=== PATIENT | female | born 1960 | race Caucasian/White ===

== ENCOUNTER → 2018-03-19 | Day surgery (SDC) | payer OTHER, MEDICAID ==
[~2018-03-19] MED LIST: ASPIR 8181 MG PO; BAYER CHEWABLE81 MG PO; CELEXA20 MG; CELEXA20 MG PO; COSOPT EYE DROPS5 ML OPHTHALMIC; HYDROCODONE-AP1 EAC6 PO; MAXIDEX5 ML OPHTHALMIC; MOBIC15 MG PO; MOBIC7.5 M1 PO; NORCO 5-325 TA1 EACH PO; OXYCODONE HCL 55 MG PO; PRED FORTE 1% EY5 M1 OPHTHALMIC; TRAZODONE 150150 M1 PO; TRAZODONE HCL100 MG PO; VOLTAREN GEL 1100 G2 PO; XARELTO10 MG PO
[2018-03-19 09:40] LABS: HEMATOCRIT 44.6 % (37.0-47.0); HEMOGLOBIN 14.8 gm/dL (12.0-15.0); MCH 30.3 pg (26.0-34.0); MCHC 33.3 g/dL (28.0-37.0); MPV 10.3 fl. (7.2-11.1); RBC 4.9 mil/uL (4.20-5.00); RDW-CV 14.8 % (10.5-14.5); WBC 6.3 thou/uL (4.0-11.0)
[2018-03-19 09:45] LABS: CALCIUM 9.1 mg/dL (8.5-10.1); CREATININE 0.7 mg/dL (0.6-1.3); POTASSIUM 4.3 mmol/L (3.5-5.1)
--- NOTE | 2018-03-19 14:06 | OP ---
[address] [address] OPERATIVE REPORT Name: GABY SARGENT Room: [facility]#: [id number] Admission: 03/19/18 Attend Phys: Jose L Ng DO Discharge: Date of : 56 Report #: [id number] THIS REPORT FOR: //name// CC: [facility] L [facility] DI[facility]ATED BY: Michel Vega DATE OF SERVICE: 03/19/2018 PREOPERATIVE DIAGNOSES: Left shoulder biceps tendinitis and partial rotator cuff tear. POSTOPERATIVE DIAGNOSES: Left shoulder biceps tendon tear, intrasubstance with tendinitis, articular-sided partial rotator cuff tear and impingement syndrome. SURGERY: Left shoulder arthroscopic biceps tenotomy, debridement of undersurface of partial thickness rotator cuff tear and subacromial decompression with acromioplasty. SURGEON: Jose L Ng DO BOBBIN DISKER: Michel Vega DO ANESTHESIA: General with interscalene block. ESTIMATED BLOOD LOSS: Minimal. MEDICATIONS: Preop antibiotics 2 grams Ancef IV prior to incision. COMPLICATIONS: None. SPECIMEN: None. CONDITION: The patient was stable to PACU. FINDINGS: Surgeon's inspection of the joint arthroscopically demonstrated intrasubstance tear of the biceps tendon. The articular cartilage was in good condition. There was fraying of the rotator cuff on the articular surface, but this was not full thickness. View from the subacromial space confirmed a partial thickness rotator cuff tear and there was also a large acromial spur protruding inferiorly as well as thickening of the subacromial bursa. INDICATIONS: The patient is a pleasant 58-year-old female with a longstanding left shoulder pain. She has tried and failed nonoperative care and MRI confirmed biceps tendinosis with a partial thickness rotator cuff tear. After [address] [address] OPERATIVE REPORT Name: GABY SARGENT Room: [facility]#: [id number] Admission: 03/19/18 Attend Phys: Jose L Ng DO Discharge: Date of : 56 Report #: [id number] discussing the risks, benefits, complications, alternatives and indications to left shoulder arthroscopy including but not limited to bleeding, infection, neurovascular injury, continued pain, need for further surgery, DVT, PE, inherent risks of anesthesia, she is willing to proceed. Consent is available in the chart. DESCRIPTION OF PROCEDURE: The patient was seen in preoperative holding area and operative site initialed by surgeon. She was brought back to operative suite, placed in a well-padded table in supine position. General anesthesia was induced. The patient was then positioned in the upright beach chair position on the T-max table. All extremities and head and neck were well padded and supported. The left shoulder was sterilely prepped and draped in normal fashion. Timeout was performed in usual fashion, all attendants were in agreement. A 15 blade scalpel was used to make a posterior portal incisions and a blunt trocar used to access the glenohumeral joint. Camera was introduced and the shoulder insufflated with normal saline. Diagnostic arthroscopy was performed with the above-mentioned findings. A spinal needle was used for localization, anterior portal site and a 15 blade scalpel was used to make anterior skin incision. Blunt trocar was used to access the joint anteriorly. Arthroscopic scissors was then advanced and a biceps tenotomy was performed. A shaver was also utilized along with radiofrequency ablator to the anterior portal to perform debridement of the undersurface rotator cuff tear. Instruments were removed and the trocar was used to access the subacromial space posteriorly. Camera was introduced and the space was insufflated with normal saline. A spinal needle was then used for a lateral portal site incision and a 15 blade scalpel used to incise the skin. Blunt trocar was used to access the space. Radiofrequency ablator and shaver were used to perform a subacromial decompression removing bursal tissue. The rotator cuff was inspected and found to be intact from the subacromial space. A stitch had been placed through a spinal needle prior to entering the subacromial space for localization of suspected tear. This was identified and there was no full thickness tear here. A bur was then used on high speed to perform an acromioplasty of the acromial spur. The space was drained of fluid and the instruments were removed. Incision was closed with 3-0 nylon in simple interrupted fashion. Dressings were placed in the form of Xeroform gauze, 4 x 4, ABDs and tape. The patient was awoken and brought to PACU in stable fashion. She tolerated the procedure well. Dr. Ng was present throughout the critical aspects of surgery. Sponge and needle counts were correct x 2. <ELECTRONICALLY SIGNED> By: Jose L Ng DO 03/19/18 1406 1213 1250Jose L Ng DO /spike
--- NOTE | 2018-03-20 17:21 | EKG ---
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: : 1960 Requested By: Jose L Ng Order Number: [id number] Reading MD: Dat Rosado Measurements Intervals [place] Rate: 87 P: 39 NV: 135 QRS: 32 QRSD: 89 T: -82 QT: 380 QTc: 457 Interpretive Statements Sinus rhythm Borderline repolarization abnormality Compared to ECG 04/29/2016 10:23:00 No significant changes Electronically Signed On 03-20-2018 17:21:33 CDT by aDt Rosado [email or web address] <ELECTRONICALLY SIGNED> By: Dat Rosado MD, [facility] 03/20/18 1721 0921 0 Dat Rosado MD, [facility] /EPI
== END | disposition home or self-care (01) ==
LOC: M.SUR 08:03
PROVIDERS: Orthopaedic Surgery
DX: M75.102 Unspecified rotator cuff tear or rupture of left shoulder, not specified as traumatic (principal); S46.212A Strain of muscle, fascia and tendon of other parts of biceps, left arm, initial encounter; M75.42 Impingement syndrome of left shoulder; X58.XXXA Exposure to other specified factors, initial encounter; Z79.82 Long term (current) use of aspirin; Z79.891 Long term (current) use of opiate analgesic; Y93.89 Activity, other specified; Y92.89 Other specified places as the place of occurrence of the external cause; Y99.8 Other external cause status

== ENCOUNTER → 2018-12-09 | Outpatient (CLI) | payer OTHER, MEDICAID | LOC: M.WC 12-07 09:00 | DX: S41.102A Unspecified open wound of left upper arm, initial encounter (principal); S31.109A Unspecified open wound of abdominal wall, unspecified quadrant without penetration into peritoneal cavity, initial encounter; S81.801A Unspecified open wound, right lower leg, initial encounter; S81.831A Puncture wound without foreign body, right lower leg, initial encounter; E66.9 Obesity, unspecified; M19.90 Unspecified osteoarthritis, unspecified site; F41.9 Anxiety disorder, unspecified; F32.9 Major depressive disorder, single episode, unspecified; Z68.41 Body mass index [BMI] 40.0-44.9, adult; Z96.659 Presence of unspecified artificial knee joint; Z90.710 Acquired absence of both cervix and uterus; Z98.49 Cataract extraction status, unspecified eye; Z79.82 Long term (current) use of aspirin; X58.XXXA Exposure to other specified factors, initial encounter; Y93.89 Activity, other specified; Y92.89 Other specified places as the place of occurrence of the external cause; Y99.8 Other external cause status ==

== ENCOUNTER 2019-12-03 17:38 | Emergency (ER) | payer OTHER, MEDICAID ==
[~2019-12-03] VITALS: Ht 160 cm; Wt 141.4 kg
[2019-12-03] MEDS ORDERED: RAYOS5 MG PO (17:51)
[2019-12-03] MEDS ORDERED: DORYX MPC120 MG PO (17:51)
[2019-12-03] MEDS ORDERED: AMOXICILLIN500 M1 PO (17:53)
[2019-12-03 18:17] LABS: ABSOLUTE BASOPHILS 0.1 thou/uL (0.0-0.2); ABSOLUTE LYMPHOCYTES 2.1 thou/uL (0.8-5.3); ABSOLUTE MONOCYTES 0.9 thou/uL (0.0-1.2); ABSOLUTE NEUTROPHILS 6.7 thou/uL (1.6-8.1); BASOPHILS 0.7 %; EOSINOPHILS 0.2 %; HEMATOCRIT 44.6 % (37.0-47.0); HEMOGLOBIN 15.2 gm/dL (12.0-15.0); LYMPHOCYTES 21.5 %; MCH 30.8 pg (26.0-34.0); MCV 90.6 fL (80.0-100.0); MONOCYTES 9.5 %; MPV 10.4 fl. (7.2-11.1); NUCLEATED RBCS 0 /100WBC; PLATELET COUNT* 160 thou/uL (150-400); POLYS 68.1 %; RBC 4.92 mil/uL (4.20-5.00); RDW-CV 15.3 % (10.5-14.5); WBC 9.9 thou/uL (4.0-11.0)
[2019-12-03 18:28] LABS: CREATININE 0.7 mg/dL (0.6-1.3); POTASSIUM 4.4 mmol/L (3.5-5.1)
[2019-12-03 18:39] LABS: TOTAL BILIRUBIN 0.3 mg/dL (<0.1-1.0); TOTAL PROTEIN 7.8 g/dL (6.4-8.2)
[2019-12-03] MEDS ORDERED: LEVAQUIN 500 M500 MG PO (18:41)
[2019-12-03 18:49] VITALS: BP 208/104
--- NOTE | 2019-12-04 10:00 | EKG ---
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: [place] : 1960 Requested By: Robin Sullivan Order Number: [id number] MD: Joe Ross Measurements Intervals [place] Rate: 99 P: 51 MN: 179 QRS: 29 QRSD: 97 T: 229 QT: 368 QTc: 473 Interpretive Statements Sinus rhythm Consider right atrial enlargement Borderline repolarization abnormality Minimal ST elevation, anterior leads Compared to ECG 03/19/2018 09:21:58 no change Electronically Signed On 12-04-2019 9:59:31 SENIOR RELIABILITY ENGINEER by Joe Ross [email or web address] <ELECTRONICALLY SIGNED> By: Joe Ross MD, [facility] 12/04/19 0959 1744 174 Joe Ross MD, FAC /EPI
== END 2019-12-03 18:51 | disposition home or self-care (01) ==
LOC: M.ERS 17:38
PROVIDERS: Family Medicine
DX: J18.9 Pneumonia, unspecified organism (principal); J45.901 Unspecified asthma with (acute) exacerbation; M19.90 Unspecified osteoarthritis, unspecified site; E66.9 Obesity, unspecified; Z90.710 Acquired absence of both cervix and uterus; Z96.651 Presence of right artificial knee joint; Z68.43 Body mass index [BMI] 50.0-59.9, adult

== ENCOUNTER 2020-03-30 16:25 | Inpatient (IN) | payer OTHER, MEDICAID ==
[~2020-03-30] VITALS: Ht 160 cm; Wt 135.7 kg
[~2020-03-30 16:25] MED LIST changes: +AMOXICILLIN500 M1 PO; +DORYX MPC120 MG PO; +LEVAQUIN 500 M500 MG PO; +RAYOS5 MG PO
[2020-03-30] MEDS ORDERED: METFORMIN HCL500 M3 PO (16:35)
[2020-03-30 16:55] LABS: ABSOLUTE BASOPHILS 0.1 thou/uL (0.0-0.2); ABSOLUTE EOSINOPHILS 0.1 thou/uL (0.0-0.7); ABSOLUTE LYMPHOCYTES 2.3 thou/uL (0.8-5.3); ABSOLUTE NEUTROPHILS 5.5 thou/uL (1.6-8.1); BASOPHILS 1.1 %; EOSINOPHILS 0.8 %; HEMOGLOBIN 14.6 gm/dL (12.0-15.0); LYMPHOCYTES 25.4 %; MCH 30.7 pg (26.0-34.0); MCV 90.4 fL (80.0-100.0); MPV 10.3 fl. (7.2-11.1); NUCLEATED RBCS 0 /100WBC; PLATELET COUNT* 153 thou/uL (150-400); POLYS 61.7 %; RBC 4.76 mil/uL (4.20-5.00); RDW-CV 14.4 % (10.5-14.5); WBC 8.9 thou/uL (4.0-11.0)
[2020-03-30 17:07] LABS: APTT 27.9 Seconds (25.0-31.3); INR 1.1; PROTIME 11.2 Seconds (9.20-11.50)
[2020-03-30 17:11] LABS: CALCIUM 8.8 mg/dL (8.5-10.1); CREATININE 0.7 mg/dL (0.6-1.3); POTASSIUM 4.6 mmol/L (3.5-5.1)
[2020-03-30 17:28] LABS: CK-MB MASS 1.3 ng/mL (<0.5-3.6); MAGNESIUM 1.9 mg/dL (1.8-2.4); TOTAL BILIRUBIN 0.3 mg/dL (<0.1-1.0); TOTAL PROTEIN 7.6 g/dL (6.4-8.2)
[2020-03-30 17:55] LABS: URINE BILIRUBIN NEGATIVE (Negative); URINE BLOOD NEGATIVE (Negative); URINE CLARITY CLEAR; URINE COLOR YELLOW; URINE GLUCOSE-RANDOM NEGATIVE (Negative); URINE KETONES NEGATIVE (Negative); URINE LEUKOCYTES-REFLEX NEGATIVE (Negative); URINE NITRITE-REFLEX NEGATIVE (Negative); URINE PROTEIN NEGATIVE (Negative); URINE SPECIFIC GRAVITY 1.025 (1.005-1.030); URINE UROBILINOGEN 0.2 E.U./dl (0.2-1.0)
[2020-03-30 20:00] VITALS: BP 155/54
[2020-03-30 20:08] VITALS: BP 119/53
[2020-03-31] VITALS: BP 126/63
[2020-03-31 04:55] VITALS: BP 137/60
--- NOTE | 2020-03-31 07:19 | NUR ---
ASSUMED CARE OF PT 03/30/20 AT APPROX 2000, PT A&OX4, ON 2L NC, VSS. SINUS RHYTHUM ON MONITOR. NO COMPLAINTS THIS SHIFT. ASSESSMENTS AND HOURLY ROUNDINGS COMPLETE.
[2020-03-31 08:00] VITALS: BP 167/87
[2020-03-31 10:15] VITALS: BP 167/87
[2020-03-31] MEDS ORDERED: CEFDINIR300 MG PO ×2 (10:54→10:55)
[2020-03-31 11:28] VITALS: BP 167/87
--- NOTE | 2020-03-31 13:02 | NUR ---
DISCHARGED HOME WITH FRIEND TONEY. RESPIRATIONS EVEN AND UNLABORED ON ROOM AIR. DENIES PAIN. DISCHARGE INSTRUCTIONS GIVEN AND EXPLAINED. VERBALIZED UNDERSTANDING. INSTRUCTED TO FOLLOW UP NEEDED.
--- NOTE | 2020-04-01 14:41 | EKG ---
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 : 1960 Requested By: Jose Hua Order Number: [id number] MD: Dat Rosado Measurements Intervals [place] Rate: 100 P: 35 HI: 129 QRS: 31 QRSD: 88 T: 258 QT: 357 QTc: 461 Interpretive Statements Sinus tachycardia Borderline repolarization abnormality Compared to ECG 12/03/2019 17:44:59 Sinus rhythm no longer present ST (T wave) deviation no longer present Electronically Signed On 04-01-2020 14:40:04 CDT by Dat Rosado [email or web address] <ELECTRONICALLY SIGNED> By: Dat Rosado MD, FACC 04/01/20 1440 1631 1631 Dat Rosado MD, FACC /EPI
--- NOTE | 2020-04-02 11:02 | NUR ---
INFECTION PREVENTION: PATIENT NOTIFIED OF NEGATIVE COVID 19 TEST RESULTS. NO QUESTIONS OR CONCERNS.
== END 2020-03-31 12:45 | disposition home or self-care (01) | DRG 178 ==
LOC: M.ERS 16:25 → M.TBA-ER 17:53 → M.ORTHSURG 20:00
PROVIDERS: Emergency Medicine; ADMIT Internal Medicine
DX: J15.6 Pneumonia due to other Gram-negative bacteria (principal); Z68.43 Body mass index [BMI] 50.0-59.9, adult; F32.9 Major depressive disorder, single episode, unspecified; M19.90 Unspecified osteoarthritis, unspecified site; Z96.651 Presence of right artificial knee joint; E66.01 Morbid (severe) obesity due to excess calories; Z20.828 Contact with and (suspected) exposure to other viral communicable diseases; Z90.710 Acquired absence of both cervix and uterus; Z79.84 Long term (current) use of oral hypoglycemic drugs; Z79.82 Long term (current) use of aspirin; Z79.899 Other long term (current) drug therapy

== ENCOUNTER → 2020-05-08 | Outpatient (CLI) | payer OTHER, MEDICAID ==
[~2020-05-08] MED LIST changes: +ALBUTEROL2.5 MG/31 INH; +AMMONIUM LACTA385 GM TOP; +CEFDINIR300 MG PO; +CHILDREN'S ZYRT10 M1 PO; +COSOPT PF EYE1 EACH EA. EYE; +Cranberry PO; +FLONASE 0.05%50 MCG NASAL; +MELOXICAM7.5 MG PO; +METFORMIN HCL500 M3 PO; +MULTIPLE VITAM1 EAC2 PO; +PROVENTIL HFA6.7 G1 INH; +SINGULAIR 10 MG10 M1 PO; +SYMBICORT160 MCG/4. INH; +TIZANIDINE HCL2 M1 PO; +ZESTRIL5 MG PO; +vitamin d PO
== END ==
LOC: M.MRI 08:47
PROVIDERS: ATTEND Family Medicine
DX: M47.26 Other spondylosis with radiculopathy, lumbar region (principal); M41.87 Other forms of scoliosis, lumbosacral region

== ENCOUNTER → 2020-05-24 | Outpatient (CLI) | payer OTHER, MEDICAID ==
--- NOTE | 2020-06-07 15:59 | PAINCON ---
[address] [address] PAIN MANAGEMENT CONSULTATION Name: GABY SARGENT Room: [facility] MarcianoZuleyma#: [id number] Admission: 05/24/20 Attend Phys: Lilia Mabry MD Discharge: Date of : 56 Report #: [id number] THIS REPORT FOR: //name// cc: Phoebe Mena Maggie M. DO THIS REPORT FOR: //name// CC: Phoebe Paul DATE OF SERVICE: 05/24/2020 CHIEF COMPLAINT: Lumbar pain and arthritis. HISTORY: The patient states that her pain is quite significant. It started in 02/2020. She states that the complexity of her pain keeps her from walking at times. Notes the pain is worse when she is sitting in a recliner. She feels that sometimes it is better when she is moving around. She describes it as intermittent, brief shooting, aching, and sharp. She rates it as a 4 today. It can rise to the level of 8. Radiates down the posterior portion of her back and into the posterior portion of her thighs. She uses a cane and walker for ambulation. She cannot walk long distances without support. Pain continues to radiate down into her legs. Sometimes feels her legs are weak. She has used sbrx-fns-vpsblyp medications like Tylenol and ibuprofen. She has used Flexeril to help with muscle spasms. She feels that sometimes the pain is worse in the morning. ALLERGIES: No known drug allergies. CURRENT MEDICATIONS: Albuterol 2 puffs, aspirin 81 mg, Symbicort 160/45 two puffs, Zyrtec 10 mg, Celexa 40 mg, cranberry, Cosopt b.i.d. in the right eye ophthalmic, Flonase nasal spray, lisinopril 5 mg, 10 mg total daily, Mobic 7.5 mg, metformin 500 mg, Singulair 10 mg, trazodone 100 mg at bedtime, vitamin D 2000 units, Thera-M daily. 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 PAST SURGICAL HISTORY: Cataract extraction, bilateral corneal transplant on 06/01/2016,eye surgery right foot surgery, left in 1991, bone spur left foot in 1993, foot surgery left in 01/2017, hand surgery in 01/2013, hand surgery in 02/2006, hysterectomy 2000, joint replacement, total knee right in 04/2016. [place] [address] PAIN MANAGEMENT CONSULTATION Name: GABY SARGENT Room: [facility]#: [id number] Admission: 05/24/20 Attend Phys: Lilia Mabry MD Discharge: Date of : 56 Report #: [id number] PAIN CLINIC ASSESSMENT/PQRS: 1. The patient has osteoarthritic condition, hands. 2. Arthritis: The patient is not being treated for rheumatoid arthritis. 3. Height 5 feet 3 inches, weight 296 pounds, BMI 52.4. 4. Vital Signs: Blood pressure 144/78, heart rate 87, respiratory rate 16, room air saturation 92%, temperature 98.5. 5. Pain intensity 4/10. 6. Fall history: The patient has not fallen in the last 3 months. 7. Blood thinner. The patient is not on a blood thinning medication. 8. Hypertension. The patient is being treated for hypertension. 9. Opioids greater than 6 weeks. The patient is not on a regular opioid medication, receives her medication from her primary. 10. Risk assessment tool, low for opioid use. 11. Functional assessment tool, reviewed. 12. Recreational drug use: The patient denies. 13. Tobacco. Denies use of tobacco. 14. Alcohol: The patient denies use of alcohol. SOCIAL HISTORY: The patient is retired. PHYSICAL EXAMINATION: GENERAL: The patient is a well-developed, well-nourished white female. Appears her stated age. She is alert and oriented x 3. Her affect is appropriate. Speech is fluent. The patient is wearing a mask. NECK: Without adenopathy or JVD. HEART: Tones distant. LUNGS: Generally unremarkable. ABDOMEN: Protuberant. EXTREMITIES: Upper extremity muscle strength judged to be 5-/5. Some decreased range of motion shoulder. The patient without significant scoliosis or lordosis. IMPRESSION: 1. The patient has pain and discomfort in lower portion of her back radiating to the L5-S1 dermatomal distribution involsving the posterior portion of her legs. 2. Arthritis. 3. Asthma. 4. Cataracts. 5. Depression. 6. Diabetes mellitus. 7. Glaucoma in both eyes in 07/23/2018. 8. Obesity. 9. Urinary tract infections. 10. [place] [address] PAIN MANAGEMENT CONSULTATION Name: GABY SARGENT Room: [facility] James#: [id number] Admission: 05/24/20 Attend Phys: Lilia Mabry MD Discharge: Date of : 56 Report #: [id number] LABORATORY DATA: MRI of the lumbar spine dated 05/08/2020: 1. L3-L4, there is generalized disk bulge with severe hypertrophic facet degenerative changes and ligamentum flavum hypertrophy. No central spinal stenosis or significant neural foraminal narrowing. 2. L4-L5, there is a generalized disk bulge with severe hypertrophic posterior facet degenerative changes and ligamentum flavum hypertrophy. There is a broad-based central disk protrusion. This narrows AP diameter of the thecal sac to 7 mm consistent with [id number] central spinal stenosis. There is severe bilateral neural foraminal narrowing. 3. At L5-S1, there is a broad-based central left paracentral disk protrusion. This abuts and deforms the anterior thecal sac. AP diameter of the thecal sac remains 10 mm. There is a mild left neural foraminal narrowing. RECOMMENDATIONS: We discussed treatment options with the patient. She does have narrowing of the lumbar area. She has pain and discomfort in the L5-S1 dermatomal distribution. We have discussed the risks and benefits of an epidural steroid injection. Given that the patient is a diabetic, injections with steroids can cause elevation of blood sugar. She is aware of this. She will return to the Pain Clinic, at which time she will undergo an epidural steroid injection. Risks and benefits will be reviewed again. We would like to thank you for letting us participate in her care. We hope she continues to improve. <ELECTRONICALLY SIGNED> By: Lilia Mabry MD 06/07/20 1559 1517 [id number]. MD DEBORAH Marinelli
== END ==
LOC: M.PC 10:30
PROVIDERS: ATTEND Anesthesiology Pain Medicine
DX: M54.5 Low back pain (principal); M19.90 Unspecified osteoarthritis, unspecified site; J45.909 Unspecified asthma, uncomplicated; F32.9 Major depressive disorder, single episode, unspecified; E11.9 Type 2 diabetes mellitus without complications; E66.9 Obesity, unspecified; N39.0 Urinary tract infection, site not specified; H26.9 Unspecified cataract; Z97.0 Presence of artificial eye

== ENCOUNTER → 2020-06-07 | Outpatient (CLI) | payer OTHER, MEDICAID ==
--- NOTE | 2020-06-20 08:36 | PAINCON ---
[address] [address] PAIN MANAGEMENT CONSULTATION Name: GABY SARGENT [id number] Admission: 06/07/20 Attend Phys: Lilia Mabry MD Discharge: Date of : 56 Report #: [id number] THIS REPORT FOR: //name// cc: Phoebe Mena Maggie M. DO ~ THIS REPORT FOR: //name// CC: Phoebe Mabry DATE OF SERVICE: 06/07/2020 CHIEF COMPLAINT: Low back pain and pain in the upper legs. HISTORY: The patient is a 60-year-old female who has been seen in the pain clinic because of lumbar pain. She has been experiencing pain, which started in 02/2020. Notes that the pain has been quite problematic. She has been resting and staying in a recliner. She has pain that radiates down the posterior portion of her legs into her thighs. She has been using a cane and walker for ambulation. She has difficulty walking distances. She requires support. Feels her legs are weak. She has returned today for treatment. She is having pain in the lower portion of her legs and has returned today for an epidural steroid injection. ALLERGIES: No known drug allergies. CURRENT MEDICATIONS: Albuterol 2 puffs, aspirin 81 mg, Symbicort 2 puffs, Zyrtec 10 mg, Celexa 40 mg, cranberry, Cosopt b.i.d. in the right eye ophthalmic, Flonase nasal spray, lisinopril 5 mg, total of 10 mg daily, Mobic 7.5 mg, metformin 500 mg, Singulair 10 mg, trazodone 100 mg at bedtime, vitamin D 2000 units. PAIN CLINIC ASSESSMENT/PQRS: 1. The patient has arthritic changes and problems in her hands. 2. Arthritis. The patient is not being treated for rheumatoid arthritis. 3. Height 5 feet 3 inches, weight 297 pounds, and BMI is 54. 4. Blood pressure 121/78, heart rate 93, respiratory rate 20, room air saturation is 96%, temperature 97.9. 5. Pain intensity 8/10. 6. Fall history: The patient has not fallen in the last 3 months. 7. Blood thinner. The patient is not on a blood thinning medication. 8. Hypertension. The patient is being treated for hypertension. 9. Opioids greater than 6 weeks. The patient is not on an opioid regimen. The patient receives medication from her primary. 10. Risk assessment tool, low for opioid use. 11. Functional assessment [place] [address] PAIN MANAGEMENT CONSULTATION Name: GABY SARGENT Room: [facility] KamleshKiana#: [id number] Admission: 06/07/20 Attend Phys: Lilia Mabry MD Discharge: Date of : 56 Report #: [id number] 12. Recreational drug use. The patient denies. 13. Tobacco: The patient denies. 14. Alcohol: The patient denies. PHYSICAL EXAMINATION: GENERAL: The patient is a well-developed, well-nourished white female. Appears her stated age. She is alert and oriented x 3. She is appropriate. Speech is fluent. The patient is wearing a mask. NECK: Without adenopathy or JVD. HEART: Regular rate. ABDOMEN: Protuberant. LUNGS: Unremarkable. EXTREMITIES: Upper extremity muscle strength 5-/5 for the major muscle groups in the upper extremity. The patient has decreased range of motion in her shoulders. The patient is without significant scoliosis or lordosis. The patient has pain and discomfort in the lower portion of her back, radiating down in the L5-S1 dermatomal distribution involving her legs. IMPRESSION: 1. Lumbar radiculopathy, L4-L5 dermatomal distribution. 2. Arthritis. 3. Asthma. 4. Cataracts. 5. Depression. 6. Diabetes mellitus. 7. Glaucoma in both eyes, 07/23/2018. 8. Obesity. 9. Urinary tract infections. 10. Visual impairment. RECOMMENDATIONS: We discussed treatment options with the patient. Risks and benefits of an epidural steroid injection were discussed. Possible complications of the procedure, which could include but are not limited to infection, worsening of pain, no improvement in pain, nerve damage were discussed. The patient is aware that COVID-19 is pandemic. She has been informed about the possible complications of COVID-19 and use of steroids, one may not be able to ____ immune response given an epidural injection with steroids. Given the patient's pain and discomfort, she elects to proceed. PROCEDURE NOTE: The patient was taken to the procedure area. She was then assisted in getting on the examination table. Her back was sterilely prepped with a Betadine solution at the L4-L5 area. A 0.25% bupivacaine was infiltrated. A 17-gauge Tuohy with loss of resistance technique was used to gain access to the epidural space. There was no CSF, heme or paresthesia. A total of 80 mg Depo-Medrol, 40 mg triamcinolone and 2 mL of 0.25% bupivacaine was injected. Total of 20 seconds fluoroscopy time [place] [address] PAIN MANAGEMENT CONSULTATION Name: GABY SARGENT Room: [facility]#: [id number] Admission: 06/07/20 Attend Phys: Lilia Mabry MD Discharge: Date of : 56 Report #: [id number] tolerated the procedure well. She remained in the Pain Clinic for an appropriate amount of time. She will monitor her blood sugars. We would like to thank you for letting us participate in her care. We hope she continues to improve. <ELECTRONICALLY SIGNED> By: Lilia Mabry MD 06/20/20 0836 0905 1609N. Kris Mabry MD /nt
== END | disposition home or self-care (01) ==
LOC: M.PC 04:23
PROVIDERS: ATTEND Anesthesiology Pain Medicine
DX: M54.16 Radiculopathy, lumbar region (principal); G89.29 Other chronic pain; E11.9 Type 2 diabetes mellitus without complications; J45.909 Unspecified asthma, uncomplicated; M19.90 Unspecified osteoarthritis, unspecified site; H40.9 Unspecified glaucoma; F32.9 Major depressive disorder, single episode, unspecified; E66.09 Other obesity due to excess calories; Z98.890 Other specified postprocedural states; Z79.899 Other long term (current) drug therapy; Z68.43 Body mass index [BMI] 50.0-59.9, adult

== ENCOUNTER → 2020-07-05 | Outpatient (CLI) | payer OTHER, MEDICAID ==
--- NOTE | 2020-07-20 13:41 | PAINCON ---
[address] [address] PAIN MANAGEMENT CONSULTATION Name: GABY SARGENT [id number] Admission: 07/05/20 Attend Phys: Lilia Mabry MD Discharge: Date of : 56 Report #: [id number] THIS REPORT FOR: //name// cc: Phoebe Mena Maggie M. DO ~ THIS REPORT FOR: //name// CC: Phoebe Paul DATE OF SERVICE: 07/05/2020 CHIEF COMPLAINT: Low back and right leg pain. HISTORY: The patient is a 60-year-old female who has been seen in the Pain Clinic because of lumbar radiculopathy. She continues to experience pain in the lower portion of her back and down into her right leg. She underwent an epidural steroid injection. She noticed that there was an improvement after the last injection. She has returned today in followup. She rates her pain as a 0/10. She feels that her pain improved by about 100%. She has noticed a bit of the pain is starting to reoccur. She does note some increased discomfort with walking. She finds that use of her medication as well as rest are beneficial. She continues to have some pain and discomfort involving her right knee. ALLERGIES: No known drug allergies. CURRENT MEDICATIONS: Albuterol 2 puffs, aspirin 81 mg, Symbicort 2 puffs, Zyrtec 10 mg, Celexa 40 mg, cranberry, Cosopt b.i.d. in the right eye ophthalmic, Flonase nasal spray, lisinopril 5 mg, total of 10 mg daily, Mobic 7.5 mg, metformin 500 mg, Singulair 10 mg, trazodone 100 mg at bedtime, vitamin D 2000 units. PAIN CLINIC ASSESSMENT/PQRS: 1. The patient has some arthritic changes in her hands. She is not being treated for rheumatoid arthritis. 2. Height is 5 feet 3 inches, weight 294 pounds, BMI is 52. 3. Vital Signs: Blood pressure 104/76, heart rate 84, respiratory rate 18, room air saturation 96%, and temperature 97.8. 4. Pain intensity score, 0/10. 5. Fall history: The patient has not fallen in the last 3 months. 6. Blood thinner. The patient is not on a blood thinning medication. 7. Hypertension. The patient is being treated for hypertension. 8. Opioids greater than 6 weeks. The patient is not receiving opioid medications. She receives medication from the primary. 9. Risk assessment tool, low [place] [address] PAIN MANAGEMENT CONSULTATION Name: GABY SARGENT Room: [facility]#: [id number] Admission: 07/05/20 Attend Phys: Lilia Mabry MD Discharge: Date of : 56 Report #: [id number] 10. Functional assessment tool reviewed. 11. Recreational drugs. The patient denies. 12. Tobacco: The patient denies use of tobacco. 13. Alcohol. The patient denies use of alcoholic beverages. PHYSICAL EXAMINATION: GENERAL: The patient is a well-developed, well-nourished, somewhat obese white female, appears her stated age. She is alert and oriented x 3. Her affect is appropriate. Speech is fluent. HEENT: Normocephalic, atraumatic. Extraocular eye muscles intact. Sclerae nonicteric. Mucous membranes are moist. The patient is wearing a mask. HEART: Regular rate. ABDOMEN: Protuberant. LUNGS: Generally clear, unremarkable. MUSCULOSKELETAL: Upper extremity muscle strength is judged to be 5-/5 for the major muscle groups in the upper extremity. The patient has some pain and discomfort in her shoulders. The patient is without significant scoliosis, kyphosis or lordosis. The patient has had pain in the lower portion of her back, which radiated down into her legs in the L5-S1 dermatomal distribution, which is not problematic today. IMPRESSION: 1. History of lumbar radiculopathy, L4-L5 dermatomal distribution as well as the L5-S1 dermatomal distribution. 2. Arthritis. 3. Asthma. 4. Cataracts. 5. Depression. 6. Diabetes mellitus. 7. Glaucoma in both eyes, 07/23/2018. 8. Obesity. 9. Urinary tract infections. 10. Visual impairment. RECOMMENDATIONS: We discussed treatment options with the patient. At this juncture, she feels that her pain improved by about 100%. She is not having much discomfort at this point. We will have the patient continue with a conservative approach. She can return to the pain clinic in the future as needed. We would like to thank you for letting us participate in her care. We hope she continues to improve. <ELECTRONICALLY SIGNED> By: Lilia Mabry MD 07/20/20 1341 0935 2308N. Kris Mabry MD /nt
== END ==
LOC: M.PC 01:54
PROVIDERS: ATTEND Anesthesiology Pain Medicine
DX: M54.5 Low back pain (principal); M79.604 Pain in right leg; M19.90 Unspecified osteoarthritis, unspecified site; J45.909 Unspecified asthma, uncomplicated; H26.9 Unspecified cataract; F32.9 Major depressive disorder, single episode, unspecified; E11.9 Type 2 diabetes mellitus without complications; E66.9 Obesity, unspecified; N39.0 Urinary tract infection, site not specified; H54.7 Unspecified visual loss; F11.20 Opioid dependence, uncomplicated; Z79.899 Other long term (current) drug therapy; Z87.39 Personal history of other diseases of the musculoskeletal system and connective tissue

== ENCOUNTER → 2020-07-19 | Outpatient (CLI) | payer OTHER, MEDICAID ==
--- NOTE | 2020-08-01 14:42 | PAINCON ---
[address] [address] PAIN MANAGEMENT CONSULTATION Name: GABY SARGENT Room: [facility] JOANNE TariqZuleyma#: [id number] Admission: 07/19/20 Attend Phys: Lilia Mabry MD Discharge: Date of : 56 Report #: [id number] THIS REPORT FOR: //name// cc: Phoebe Mena Maggie M. DO THIS REPORT FOR: //name// CC: Phoebe Paul DATE OF SERVICE: 07/19/2020 CHIEF COMPLAINT: Low back and leg pain. HISTORY: The patient is a 60-year-old female who has been seen in the pain clinic because of lumbar radiculopathy. She continues to have pain, which involves the low back area. She has undergone epidural steroid injections and gleaned benefits from those. She is having some pain in her right knee. She is considering undergoing another treatment for low back pain. She rates her pain as a 10/10 at this juncture. It radiates in the low back, upper legs, and down into her right leg. It has been problematic over the last 3-4 months. There is a sharp component to the pain as well as an aching component. She notes that activities, cold, walking, and standing can be more problematic. She has been using tramadol, Mobic, and muscle relaxants to try and help with the pain. ALLERGIES: No known drug allergies. CURRENT MEDICATIONS: Albuterol 2 puffs, aspirin 81 mg, Symbicort 2 puffs, Zyrtec 10 mg, Celexa 40 mg, cranberry, Cosopt b.i.d. in the right eye ophthalmic, Flonase nasal spray, lisinopril 5 mg, total 10 mg daily, Mobic 7.5 mg, metformin 500 mg, Singulair 10 mg, , trazodone 100 mg at bedtime, vitamin D 2000 units. PAIN CLINIC ASSESSMENT/PQRS: 1. The patient has some arthritic changes in her hand. She is not being treated for rheumatoid arthritis. 2. Height 5 feet 3 inches, weight 292 pounds, BMI is 51.7. 3. Vital signs: Blood pressure 135/53, heart rate 88, respiratory rate 19, room air saturation 91%, temperature 97.1. 4. Pain intensity 10/10. 5. Fall history: The patient has not fallen in the last 3 months. 6. Blood thinner. The patient is not on a blood thinning medication. 7. Hypertension. The patient is being treated for hypertension. 8. Opioids greater than 6 weeks. The patient received medication from one source, [place] [address] PAIN MANAGEMENT CONSULTATION Name: GABY SARGENT Room: [facility]#: [id number] Admission: 07/19/20 Attend Phys: Lilia Mabry MD Discharge: Date of : 56 Report #: [id number] 9. Risk assessment tool, low for opioid use. 10. Functional assessment tool, reviewed. 11. Recreational drug use. The patient denies. 12. Tobacco: The patient denies use of tobacco. 13. Alcohol. The patient denies use of alcoholic beverages. PHYSICAL EXAMINATION: GENERAL: The patient is a well-developed, well-nourished, somewhat obese white female, appears her stated age. She is alert and oriented x 3. Her affect is appropriate. Speech is fluent. The patient has a facial covering. HEENT: Extraocular eye muscles intact. Sclerae nonicteric. Mucous membranes moist. HEART: Regular rate. ABDOMEN: Protuberant. LUNGS: Generally clear. MUSCULOSKELETAL: Upper extremity muscle strength judged to be 5-/5 for the major muscle groups in the upper extremity. The patient has some pain and discomfort in her shoulders. The patient has some pain. The patient is without significant scoliosis, kyphosis, or lordosis. The patient has pain that radiates into the lower portion of her back down into her legs in the L5-S1 dermatomal distribution. IMPRESSION: 1. History of lumbar radiculopathy in the L5-S1 dermatomal distribution as well as in the L4-L5 dermatomal distribution. 2. Arthritis. 3. Asthma. 4. Cataracts. 5. Depression. 6. Diabetes mellitus. 7. Glaucoma, both eyes 07/23/2018. 8. Obesity. 9. Urinary tract infection. 10. Visual impairment. RECOMMENDATIONS: We discussed treatment options with the patient. Risks and benefits of an epidural steroid injection were discussed. We will consider possibility of an epidural steroid injection. We would like to thank you for letting us participate in her care. We hope she continues to improve. ADDENDUM IMPRESSION: [place] [address] PAIN MANAGEMENT CONSULTATION Name: GABY SARGENT Room: [facility] JOANNE Ramirez#: [id number] Admission: 07/19/20 Attend Phys: Lilia Mabry MD Discharge: Date of : 56 Report #: [id number] RECOMMENDATIONS: We discussed treatment options with the patient. At this point, we will proceed with an epidural steroid injection. Risks and benefits of the procedure were discussed. They include but are not limited to infection, worsening pain, no improvement in pain, nerve damage, bleeding, and the patient elects to proceed. PROCEDURE NOTE: The patient was taken to the procedure area. She was then assisted in getting on the examination table. Her back was sterilely prepped with a Betadine solution. It was allowed to dry. A 25-gauge needle was then used to anesthetize the L5-S1 area. A total of 3 mL of 0.25% bupivacaine was infiltrated. A 17-gauge Tuohy with loss of resistance technique was used to gain access to the epidural space. There was no CSF, heme or paresthesia. Total of 80 mg Depo-Medrol, 40 mg triamcinolone and 2 mL of 0.25% bupivacaine was injected. The patient tolerated the procedure well. There were no complications. She remained in the Pain Clinic for an appropriate amount of time. She will follow up in the future as needed. We would like to thank you for letting us participate in her care. We hope she continues to improve. <ELECTRONICALLY SIGNED> By: Lilia Mabry MD 08/01/20 1442 [id number] [id number]. Kris Mabry MD /[facility]
== END | disposition home or self-care (01) ==
LOC: M.PC 09:16
PROVIDERS: ATTEND Anesthesiology Pain Medicine
DX: M54.16 Radiculopathy, lumbar region (principal); M19.90 Unspecified osteoarthritis, unspecified site; J45.909 Unspecified asthma, uncomplicated; F32.9 Major depressive disorder, single episode, unspecified; E11.9 Type 2 diabetes mellitus without complications; E66.9 Obesity, unspecified; Z87.440 Personal history of urinary (tract) infections; Z79.899 Other long term (current) drug therapy; Z79.84 Long term (current) use of oral hypoglycemic drugs; Z79.82 Long term (current) use of aspirin

== ENCOUNTER 2020-08-03 11:16 | Emergency (ER) | payer OTHER, MEDICAID ==
[~2020-08-03] VITALS: Ht 160 cm; Wt 127.0 kg
[2020-08-03] MEDS ORDERED: ACETAMINOPHEN-1 EAC2 PO (13:11)
[2020-08-03 13:25] VITALS: BP 123/46
== END 2020-08-03 13:25 | disposition home or self-care (01) ==
LOC: M.ERS 11:16
DX: S39.011A Strain of muscle, fascia and tendon of abdomen, initial encounter (principal); M19.90 Unspecified osteoarthritis, unspecified site; E66.9 Obesity, unspecified; Z68.42 Body mass index [BMI] 45.0-49.9, adult; Z96.651 Presence of right artificial knee joint; Z90.710 Acquired absence of both cervix and uterus; X50.9XXA Other and unspecified overexertion or strenuous movements or postures, initial encounter; Y93.89 Activity, other specified; Y92.89 Other specified places as the place of occurrence of the external cause; Y99.8 Other external cause status

== ENCOUNTER 2020-08-07 15:47 | Emergency (ER) | payer OTHER, MEDICAID ==
[~2020-08-07] VITALS: Ht 160 cm; Wt 127.0 kg
[~2020-08-07 15:47] MED LIST changes: +ACETAMINOPHEN-1 EAC2 PO
[2020-08-07 17:19] LABS: ABSOLUTE BASOPHILS 0.1 thou/uL (0.0-0.2); ABSOLUTE EOSINOPHILS 0.1 thou/uL (0.0-0.7); ABSOLUTE LYMPHOCYTES 2.7 thou/uL (0.8-5.3); ABSOLUTE MONOCYTES 1.2 thou/uL (0.0-1.2); BASOPHILS 1.1 %; EOSINOPHILS 0.6 %; HEMATOCRIT 41.8 % (37.0-47.0); HEMOGLOBIN 14.3 gm/dL (12.0-15.0); LYMPHOCYTES 27.1 %; MCH 31.6 pg (26.0-34.0); MCHC 34.2 g/dL (28.0-37.0); MCV 92.4 fL (80.0-100.0); MONOCYTES 11.5 %; MPV 9.5 fl. (7.2-11.1); NUCLEATED RBCS 0 /100WBC; PLATELET COUNT* 183 thou/uL (150-400); POLYS 59.7 %; RBC 4.53 mil/uL (4.20-5.00); RDW-CV 13.9 % (10.5-14.5)
[2020-08-07 17:28] LABS: CALCIUM 8.7 mg/dL (8.5-10.1); CREATININE 0.8 mg/dL (0.6-1.3); POTASSIUM 4.5 mmol/L (3.5-5.1)
[2020-08-07 17:30] LABS: INR 1.1; PROTIME 10.9 Seconds (9.20-11.50)
[2020-08-07] MEDS ORDERED: AMITRIPTYLINE H25 M2 PO (17:31)
[2020-08-07 17:33] LABS: ALBUMIN 3.6 g/dL (3.4-5.0); TOTAL BILIRUBIN 0.2 mg/dL (<0.1-1.0); TOTAL PROTEIN 7.4 g/dL (6.4-8.2)
[2020-08-07 22:15] VITALS: BP 141/63
--- NOTE | 2020-08-08 13:33 | EKG ---
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 : 1960 Requested By: Sandra Rubio Order Number: [id number] MD: Joe Ross Measurements Intervals Ernest Rate: 94 P: 6 MI: 128 QRS: 25 QRSD: 93 T: QT: 345 QTc: 432 Interpretive Statements Sinus rhythm artifact noted Nonspecific repol abnormality, inferior leads Compared to ECG 03/30/2020 16:31:00 Sinus tachycardia no longer present Electronically Signed On 08-08-2020 13:32:54 CDT by Joe Ross [email or web address] <ELECTRONICALLY SIGNED> By: Joe Ross MD, [facility] 08/08/20 1332 1706 1706 Joe Ross MD, [facility] /EPI
== END 2020-08-07 22:16 | disposition still patient (30) ==
LOC: M.ERS 15:47
PROVIDERS: Personal Emergency Response Attendant
DX: F41.9 Anxiety disorder, unspecified (principal); F32.9 Major depressive disorder, single episode, unspecified; M19.90 Unspecified osteoarthritis, unspecified site; E66.9 Obesity, unspecified; Z79.82 Long term (current) use of aspirin; Z79.899 Other long term (current) drug therapy; Z90.710 Acquired absence of both cervix and uterus

== ENCOUNTER → 2020-08-23 | Outpatient (CLI) | payer OTHER, MEDICAID ==
[~2020-08-23] MED LIST changes: +AMITRIPTYLINE H25 M2 PO
--- NOTE | 2020-09-06 09:35 | PAINCON ---
[address] [address] PAIN MANAGEMENT CONSULTATION Name: GABY SARGENT [id number] Admission: 08/23/20 Attend Phys: Lilia Mabry MD Discharge: Date of : 56 Report #: [id number] THIS REPORT FOR: //name// cc: Phoebe Mena Maggie M. DO ~ THIS REPORT FOR: //name// CC: Phoebe Mabry DATE OF SERVICE: 08/23/2020 CHIEF COMPLAINT: Low back pain has improved. HISTORY: The patient is a 60-year-old female, who has been followed in the Pain Clinic because of lumbar radiculopathy. She has undergone epidural steroid injections. At this juncture, she feels like things are going reasonably well. She is not having much pain. She does have some pain in the low back and right area after walking and standing for too long. She feels that the injections have been beneficial. She has had no complications from their use. No problem with bowel or bladder function. She feels that the tramadol medication is helpful as well. Activity can increase her discomfort. She finds that use of her medications in conjunction with rest are helpful. She has returned today for evaluation and counseling. ALLERGIES: No known drug allergies. CURRENT MEDICATIONS: Albuterol 2 puffs, aspirin 81 mg, Symbicort 2 puffs, Zyrtec 10 mg, Celexa 40 mg, cranberry, Cosopt ophthalmic b.i.d. to right eye, Flonase nasal spray, lisinopril 5 mg for a total of 10 mg daily, Mobic 7.5 mg, metformin 500 mg, Singulair 10 mg, trazodone 100 mg at bedtime, vitamin D 2000 units. PAIN CLINIC ASSESSMENT AND PQRS: 1. The patient has some arthritic changes in her hands. She is not being treated for rheumatoid arthritis. 2. Height 5 feet 3 inches, weight 294 pounds, BMI is 52. 3. Vital signs: Blood pressure 153/80, heart rate 96, respiratory rate 16, room air saturation 96%, temperature 97.2. 4. Pain intensity: 0/10 5. Fall history: The patient has not fallen in the last month. 6. Blood thinner: The patient is not on a blood thinning medication. 7. Hypertension: The patient is being treated for hypertension. 8. Opioids greater than 6 weeks: The patient receives medication from once source from primary. 9. Risk assessment tool: [place] [address] PAIN MANAGEMENT CONSULTATION Name: GABY SARGENT Room: [facility]#: [id number] Admission: 08/23/20 Attend Phys: Lilia Mabry MD Discharge: Date of : 56 Report #: [id number] 10. Functional assessment tool: Reviewed. 11. Recreational drug use: The patient denies. 12. Tobacco: The patient denies use of tobacco. 13. Alcohol: The patient denies use of alcoholic beverages. PHYSICAL EXAMINATION: GENERAL: The patient is a well-developed, well-nourished, white female. Appears her stated age. She is somewhat morbidly obese. She is alert and oriented x 3. Her affect is appropriate. The patient is wearing a facial covering. Extraocular eye muscles intact. Sclerae nonicteric. HEART: Regular rate. ABDOMEN: Protuberant. Bowel sounds present. LUNGS: Clear, but distant. MUSCULOSKELETAL: The patient without significant scoliosis, kyphosis or lordosis. The patient does complain of some pain and discomfort in her shoulders. She has less pain and discomfort in the low back area. She is not complaining of pain in the L5-S1 area, which had been a problem in the past. IMPRESSION: 1. Improved lumbar radicular pain after epidural steroid injections. 2. Arthritis. 3. Asthma. 4. Cataracts. 5. Depression. 6. Diabetes mellitus. 7. Glaucoma, both eyes, 07/23/2018. 8. Morbid obesity. 9. Urinary tract infection history. 10. Visual impairment. RECOMMENDATIONS: We discussed treatment options with the patient. At this juncture, the patient feels that her pain is reasonably well controlled. She is not having any significant problems with the back. At this juncture, we will have the patient return on a p.r.n. basis. Hopefully, she will continue to improve. All questions were sought and answered. The patient will call us if she has any concerns. <ELECTRONICALLY SIGNED> By: Lilia Mabry MD 09/06/20 0935 0957 2330N. Kris Mabry MD /spike
== END ==
LOC: M.PC 09:00
PROVIDERS: ATTEND Anesthesiology Pain Medicine
DX: M54.5 Low back pain (principal); M19.90 Unspecified osteoarthritis, unspecified site; J45.909 Unspecified asthma, uncomplicated; H26.9 Unspecified cataract; F32.9 Major depressive disorder, single episode, unspecified; E11.9 Type 2 diabetes mellitus without complications; H40.89 Other specified glaucoma; H54.7 Unspecified visual loss; E66.01 Morbid (severe) obesity due to excess calories; Z87.440 Personal history of urinary (tract) infections; Z79.899 Other long term (current) drug therapy

== ENCOUNTER 2020-10-15 15:25 | Inpatient (IN) | payer OTHER, MEDICAID ==
[~2020-10-15] VITALS: Ht 160 cm; Wt 127.0 kg
[2020-10-15 15:26] VITALS: BP 145/43
[2020-10-15 17:10] LABS: ABSOLUTE BASOPHILS 0.1 thou/uL (0.0-0.2); ABSOLUTE EOSINOPHILS 0.1 thou/uL (0.0-0.7); ABSOLUTE NEUTROPHILS 6.4 thou/uL (1.6-8.1); BASOPHILS 0.7 %; EOSINOPHILS 0.9 %; HEMATOCRIT 42.7 % (37.0-47.0); LYMPHOCYTES 20.7 %; MCH 31.2 pg (26.0-34.0); MCHC 32.8 g/dL (28.0-37.0); MCV 95.1 fL (80.0-100.0); MONOCYTES 10.9 %; MPV 9.8 fl. (7.2-11.1); NUCLEATED RBCS 0 /100WBC; PLATELET COUNT* 122 thou/uL (150-400); POLYS 66.8 %; RBC 4.49 mil/uL (4.20-5.00); RDW-CV 13.5 % (10.5-14.5); WBC 9.6 thou/uL (4.0-11.0)
[2020-10-15 17:20] LABS: CALCIUM 8.5 mg/dL (8.5-10.1); CREATININE 0.8 mg/dL (0.6-1.3)
[2020-10-15 17:25] LABS: ALBUMIN 3.6 g/dL (3.4-5.0); TOTAL BILIRUBIN 0.2 mg/dL (<0.1-1.0); TOTAL PROTEIN 6.8 g/dL (6.4-8.2)
[2020-10-15 20:14] LABS: MAGNESIUM 1.8 mg/dL (1.8-2.4); PHOSPHORUS* 3.9 mg/dL (2.5-4.9)
[2020-10-15 21:30] VITALS: BP 127/48
[2020-10-15 21:31] VITALS: BP 111/40
--- NOTE | 2020-10-16 10:32 | EKG ---
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: MARIO : 1960 Requested By: Robin Sullivan Order Number: [id number] MD: Dat Rosado Measurements Intervals [place] Rate: 88 P: 54 OK: 144 QRS: 34 QRSD: 93 T: 238 QT: 374 QTc: 453 Interpretive Statements Sinus rhythm Nonspecific T abnormalities, lateral leads Compared to ECG 08/07/2020 17:06:07 T-wave abnormality now present Early repolarization no longer present Electronically Signed On 10-16-2020 10:32:18 FLAT GRINDER OPERATOR by Dat Rosado [email or web address] <ELECTRONICALLY SIGNED> By: Dat Rosado MD, FACC 10/16/20 1032 1653 1653 Dat Rosado MD, FAC /EPI
[2020-10-16 14:44] LABS: URINE BILIRUBIN NEGATIVE (Negative); URINE BLOOD NEGATIVE (Negative); URINE CLARITY CLEAR; URINE COLOR YELLOW; URINE GLUCOSE-RANDOM 1+ (Negative); URINE KETONES NEGATIVE (Negative); URINE LEUKOCYTES-REFLEX NEGATIVE (Negative); URINE NITRITE-REFLEX NEGATIVE (Negative); URINE PROTEIN NEGATIVE (Negative); URINE SPECIFIC GRAVITY 1.025 (1.005-1.030); URINE UROBILINOGEN 0.2 E.U./dl (0.2-1.0)
[2020-10-16 16:30] VITALS: BP 116/54
[2020-10-16 20:00] VITALS: BP 132/52
[2020-10-17 08:00] VITALS: BP 149/76
[2020-10-17] MEDS ORDERED: OXYCODONE HCL 55 MG PO (10:40)
[2020-10-17 15:46] VITALS: BP 154/68
[2020-10-17 20:00] VITALS: BP 148/72
[2020-10-18 04:27] LABS: HEMATOCRIT 37.4 % (37.0-47.0); HEMOGLOBIN 12.4 gm/dL (12.0-15.0); MCHC 33.2 g/dL (28.0-37.0); MCV 93.4 fL (80.0-100.0); MPV 9.8 fl. (7.2-11.1); RDW-CV 13.2 % (10.5-14.5); WBC 6.9 thou/uL (4.0-11.0)
[2020-10-18 04:43] LABS: CREATININE 0.5 mg/dL (0.6-1.3)
[2020-10-18 07:55] VITALS: BP 156/76
[2020-10-18 08:53] VITALS: BP 156/76
== END 2020-10-18 13:45 | DRG 543 ==
LOC: M.ERS 15:25 → M.3W 18:04 → M.TBA-ER 18:04 → M.3W 21:25
PROVIDERS: Family Medicine; Internal Medicine; ADMIT Internal Medicine; ATTEND Internal Medicine
PROC: 2W3QX1Z Immobilization of Right Lower Leg using Splint (ICD-10-PCS; principal; 2020-10-15)
DX: M80.071A Age-related osteoporosis with current pathological fracture, right ankle and foot, initial encounter for fracture (principal); Z68.41 Body mass index [BMI] 40.0-44.9, adult; S93.01XA Subluxation of right ankle joint, initial encounter; E66.01 Morbid (severe) obesity due to excess calories; Z20.828 Contact with and (suspected) exposure to other viral communicable diseases; F32.9 Major depressive disorder, single episode, unspecified; Z96.651 Presence of right artificial knee joint; E11.9 Type 2 diabetes mellitus without complications; M19.90 Unspecified osteoarthritis, unspecified site; Z90.710 Acquired absence of both cervix and uterus; Z94.89 Other transplanted organ and tissue status; W18.39XA Other fall on same level, initial encounter; Y93.89 Activity, other specified; Y92.89 Other specified places as the place of occurrence of the external cause; Y99.8 Other external cause status; Z79.899 Other long term (current) drug therapy

== ENCOUNTER 2020-10-29 06:48 | Inpatient (IN) | payer OTHER, MEDICAID ==
[~2020-10-29] VITALS: Ht 160 cm; Wt 130.2 kg
[2020-10-29 16:35] VITALS: BP 143/68
[2020-10-29 20:08] VITALS: BP 147/70
[2020-10-30 00:07] VITALS: BP 133/66
[2020-10-30 07:45] VITALS: BP 152/71
[2020-10-30] MEDS ORDERED: ELIQUIS5 MG PO (10:36)
[2020-10-30 16:00] VITALS: BP 118/49
[2020-10-30 20:25] VITALS: BP 152/46
--- NOTE | 2020-10-31 06:42 | OP ---
[address] [address] OPERATIVE REPORT Name: GABY SARGENT Room: [address] IN .R.#: [id number] Admission: 10/30/20 Attend Phys: Angel Helm Discharge: Date of : 56 Report #: [id number] THIS REPORT FOR: //name// cc: Phoebe Mena Maggie M. DO ~ CC: Jose L Samaniego DATE OF SERVICE: 10/29/2020 PREOPERATIVE DIAGNOSES: Bimalleolar equivalent comminuted distal fibular fracture with syndesmosis injury, deltoid ligament tear. POSTOPERATIVE DIAGNOSES: Bimalleolar equivalent comminuted distal fibular fracture with syndesmosis injury, deltoid ligament tear. SURGERY PERFORMED: Open reduction and internal fixation of the left fibula with a TightRope and syndesmotic screw fixation. SURGEON: Dr. Jose L Ng. SPORTS THERAPIST: ____. ANESTHESIA: General anesthetic. The patient did receive 3 grams of Ancef preoperatively IV. DRAINS: She has no drains. SPECIMENS: No complications. GROSS FINDINGS: X-rays prior to surgery demonstrated the fracture dislocation of this ankle that was treated with a closed reduction initially and splint. Her several week office visit showed that her edema was significantly improved where she had wrinkling skin that her surgery could be performed and was elected to do today. Intraoperative findings correlated with a comminuted fracture, but post-placement of the fixation of this very comminuted fibula with the TightRope and syndesmotic fixation demonstrated near anatomic reduction in AP and lateral views. SURGERY IN DETAIL: The patient was taken to the operating room and placed on table. She was given the benefit of general anesthetic. She had a well-padded tourniquet placed on her leg. The patient did have tourniquet at 300 mmHg during surgery. The patient underwent a Hibiclens scrub with chlorhexidine prep and sterile draping for right leg surgery. [place] [address] OPERATIVE REPORT Name: GABY SARGENT Daniella Room: [address] IN [facility]#: [id number] Admission: 10/30/20 Attend Phys: Angel Helm Discharge: Date of : 56 Report #: [id number] everyone in the room for the right ankle. At this point in time, leg was esmarched, tourniquet inflated to 300 mm. I made a longitudinal incision from the tip of the fibula extending proximally to just past that fracture site for a plate fixation. Care was taken to protect the superficial peroneal nerve, which was visualized. Surgery continued with exposure of that comminuted fracture fragment distally. We copiously opened it up, cleaned it out and due to that severe comminution of multiple fragments that would not anatomically reduce, but we got her out to length and then initially fixated the distal plate to the most distal fracture fragments of the fibula, pulled that out to length as best we could and then fixed her with the proximal cortical screws, syndesmotic screws and a TightRope. Surgery continued with the placement of the far proximal screw fixation as well and at this point in time, we took intraoperative x-rays demonstrating near anatomic reduction. Those loose small fracture fragments were tied down with Ethibond suture through the remaining screw holes and brought them down into acceptable position. Surgery continued with copious irrigation. Deep structures were closed at this point in time with 0 Vicryl in [id number] fashion, subcutaneous tissues with 2-0 Monocryl, 3-0 nylon skin, Xeroform, 4 x 4, Kerlix, soft roll. A splint dressing was applied, was transferred off the table, taken to recovery in stable condition. I used Richard fixation. I attest I was present for all critical aspects of surgery. Needle, instrument and sponge counts were correct. <ELECTRONICALLY SIGNED> By: Jose L Ng DO 10/31/20 0642 0921 0947Jose L Ng DO /spike
[2020-10-31 07:45] VITALS: BP 121/56
[2020-10-31 16:43] VITALS: BP 131/47
[2020-10-31 21:59] VITALS: BP 141/56
[2020-11-01 07:30] VITALS: BP 143/59
[2020-11-01 08:48] VITALS: BP 143/59
== END 2020-11-01 15:33 | DRG 493 ==
LOC: M.SUR 06:48 → M.TBA 10:01 → M.3W 10:01
PROVIDERS: ADMIT Internal Medicine; ATTEND Internal Medicine
DX: S82.841A Displaced bimalleolar fracture of right lower leg, initial encounter for closed fracture (principal); Z68.43 Body mass index [BMI] 50.0-59.9, adult; E66.01 Morbid (severe) obesity due to excess calories; F32.9 Major depressive disorder, single episode, unspecified; M19.90 Unspecified osteoarthritis, unspecified site; S93.421A Sprain of deltoid ligament of right ankle, initial encounter; G47.33 Obstructive sleep apnea (adult) (pediatric); X58.XXXA Exposure to other specified factors, initial encounter; Z79.82 Long term (current) use of aspirin; Z90.710 Acquired absence of both cervix and uterus; Z79.899 Other long term (current) drug therapy; Y93.89 Activity, other specified; Y92.89 Other specified places as the place of occurrence of the external cause; Y99.8 Other external cause status

== ENCOUNTER → 2021-02-26 | Outpatient (CLI) | payer OTHER, MEDICAID ==
[~2021-02-26] MED LIST changes: +CRANBERRY200 MG PO; +ELIQUIS5 MG PO; +TRAMADOL 50 MG50 MG PO; +ZANAFLEX2 M1 PO
== END | disposition home or self-care (01) ==
LOC: M.PC 11:18
PROVIDERS: ATTEND Anesthesiology Pain Medicine
DX: M54.16 Radiculopathy, lumbar region (principal); G89.29 Other chronic pain; E11.9 Type 2 diabetes mellitus without complications; M19.90 Unspecified osteoarthritis, unspecified site; F32.9 Major depressive disorder, single episode, unspecified; H40.9 Unspecified glaucoma; J45.909 Unspecified asthma, uncomplicated; E66.01 Morbid (severe) obesity due to excess calories; Z98.890 Other specified postprocedural states; Z79.899 Other long term (current) drug therapy; Z96.651 Presence of right artificial knee joint; Z90.710 Acquired absence of both cervix and uterus; Z68.43 Body mass index [BMI] 50.0-59.9, adult

== ENCOUNTER → 2021-04-30 | Outpatient (CLI) | payer OTHER, MEDICAID | LOC: M.PC 11:14 | PROVIDERS: ATTEND Anesthesiology Pain Medicine | DX: M54.16 Radiculopathy, lumbar region (principal); M19.90 Unspecified osteoarthritis, unspecified site; J45.909 Unspecified asthma, uncomplicated; S82.891A Other fracture of right lower leg, initial encounter for closed fracture; E11.36 Type 2 diabetes mellitus with diabetic cataract; H26.9 Unspecified cataract; E11.39 Type 2 diabetes mellitus with other diabetic ophthalmic complication; H40.9 Unspecified glaucoma; H42 Glaucoma in diseases classified elsewhere; E66.01 Morbid (severe) obesity due to excess calories; Z79.899 Other long term (current) drug therapy; Z79.891 Long term (current) use of opiate analgesic; X58.XXXA Exposure to other specified factors, initial encounter; Y93.89 Activity, other specified; Y92.89 Other specified places as the place of occurrence of the external cause; Y99.8 Other external cause status ==

== ENCOUNTER → 2021-05-14 | Outpatient (CLI) | payer OTHER, MEDICAID ==
[~2021-05-14] MED LIST changes: +GABAPENTIN600 M1 PO; +HYDROCODON-ACE1 EAC7 PO
== END | disposition home or self-care (01) ==
LOC: M.PC 09:05
PROVIDERS: ATTEND Anesthesiology Pain Medicine
DX: M54.16 Radiculopathy, lumbar region (principal); G89.29 Other chronic pain; I10 Essential (primary) hypertension; E11.9 Type 2 diabetes mellitus without complications; M19.90 Unspecified osteoarthritis, unspecified site; J45.909 Unspecified asthma, uncomplicated; F32.9 Major depressive disorder, single episode, unspecified; H40.9 Unspecified glaucoma; E66.01 Morbid (severe) obesity due to excess calories; Z98.890 Other specified postprocedural states; Z79.899 Other long term (current) drug therapy; Z68.42 Body mass index [BMI] 45.0-49.9, adult; Z96.651 Presence of right artificial knee joint; Z90.710 Acquired absence of both cervix and uterus

== ENCOUNTER → 2021-07-18 | Outpatient (CLI) | payer OTHER, MEDICAID | LOC: M.PC 07-09 08:20 | PROVIDERS: ATTEND Anesthesiology Pain Medicine | DX: S82.892D Other fracture of left lower leg, subsequent encounter for closed fracture with routine healing (principal); G89.29 Other chronic pain; M54.16 Radiculopathy, lumbar region; M19.90 Unspecified osteoarthritis, unspecified site; J45.909 Unspecified asthma, uncomplicated; H26.9 Unspecified cataract; E11.9 Type 2 diabetes mellitus without complications; H40.9 Unspecified glaucoma; E66.01 Morbid (severe) obesity due to excess calories; F32.9 Major depressive disorder, single episode, unspecified; X58.XXXD Exposure to other specified factors, subsequent encounter ==

== ENCOUNTER → 2021-11-05 | Outpatient (CLI) | payer OTHER, MEDICAID | END | disposition home or self-care (01) | LOC: M.PC 09:25 | PROVIDERS: ATTEND Anesthesiology Pain Medicine | DX: M54.16 Radiculopathy, lumbar region (principal); G89.29 Other chronic pain; E11.9 Type 2 diabetes mellitus without complications; J45.909 Unspecified asthma, uncomplicated; M19.90 Unspecified osteoarthritis, unspecified site; H40.9 Unspecified glaucoma; E66.01 Morbid (severe) obesity due to excess calories; Z96.651 Presence of right artificial knee joint; Z90.710 Acquired absence of both cervix and uterus; Z98.890 Other specified postprocedural states; Z79.899 Other long term (current) drug therapy; Z68.42 Body mass index [BMI] 45.0-49.9, adult ==

== ENCOUNTER → 2022-01-09 | Outpatient (CLI) | payer OTHER, MEDICAID ==
[~2022-01-09] MED LIST changes: +WELLBUTRIN SR150 M1 PO
== END | disposition home or self-care (01) ==
LOC: M.PC 08:21
PROVIDERS: ATTEND Anesthesiology Pain Medicine
DX: M54.17 Radiculopathy, lumbosacral region (principal); G89.29 Other chronic pain; E11.9 Type 2 diabetes mellitus without complications; J45.909 Unspecified asthma, uncomplicated; M19.90 Unspecified osteoarthritis, unspecified site; F32.9 Major depressive disorder, single episode, unspecified; E66.01 Morbid (severe) obesity due to excess calories; H40.9 Unspecified glaucoma; Z98.890 Other specified postprocedural states; Z79.899 Other long term (current) drug therapy; Z68.42 Body mass index [BMI] 45.0-49.9, adult; Z96.651 Presence of right artificial knee joint; Z90.710 Acquired absence of both cervix and uterus